=== PATIENT | male | born 1940 | race Caucasian/White ===

== ENCOUNTER → 2024-03-11 11:37 | Outpatient (BNVA) | payer MEDICARE, SELFPAY | PROVIDERS: PCP Family Medicine; Visit Provider Family Medicine | DX: Z00.00 Encounter for general adult medical examination without abnormal findings (principal); Z12.5 Encounter for screening for malignant neoplasm of prostate; E55.9 Vitamin D deficiency, unspecified; E78.2 Mixed hyperlipidemia; R79.89 Other specified abnormal findings of blood chemistry | CPT/HCPCS: 80053; 80061; 82306; 84443; 85025; G0103 ==

== ENCOUNTER → 2024-09-05 15:10 | Outpatient (BNVA) | payer MEDICARE, SELFPAY | PROVIDERS: PCP Family Medicine; Visit Provider Family Medicine | DX: R31.9 Hematuria, unspecified (principal); J30.9 Allergic rhinitis, unspecified; J01.90 Acute sinusitis, unspecified | CPT/HCPCS: 81000; 87086 ==